=== PATIENT | female | born 2000 | race Caucasian/White ===

== ENCOUNTER 2020-09-26 04:35 | Emergency (ER) | payer MEDICAID ==
[~2020-09-26] VITALS: Ht 175.3 cm; Wt 88.0 kg
[2020-09-26] MEDS ORDERED: SODIUM CHLORIDE 0.9% 1,000 ML IV ONE (07:00)
[2020-09-26] MEDS ORDERED: ONDANSETRON HCL 4MG/2ML INJ IV ONE (07:00)
[2020-09-26 07:42] LABS: CLARITY URINE TURBID (CLEAR); COLOR URINE DARK YELLOW (YELLOW); KETONES URINE TRACE (NEGATIVE); LEUKOCYTE ESTERASE URINE 1+ (NEGATIVE); NITRITE URINE NEGATIVE (NEGATIVE); OCCULT BLOOD URINE NEGATIVE (NEGATIVE); PH URINE 5.5 (4.5-8.0); PROTEIN URINE 1+ (NEGATIVE); SPECIFIC GRAVITY URINE 1.029 (1.005-1.030)
[2020-09-26 08:15] LABS: BASOPHILS % 0.3 % (0.0-2.0); EOSINOPHILS % 0.1 % (0.0-5.0); HEMATOCRIT. 32.6 % (36.0-48.0); HEMOGLOBIN. 10.4 g/dL (12.0-16.0); LYMPHOCYTES % 16.3 % (20.0-50.0); MEAN CORPUSCULAR HEMOGLOBIN 23.5 pg (28.0-32.0); MEAN CORPUSCULAR VOLUME 73.4 fL (81.0-99.0); MEAN PLATELET VOLUME 7.8 fl (7.4-10.4); NEUTROPHILS % 79.3 % (40.0-76.0); PLATELET 324 x1000/uL (130-400); RED BLOOD CELL COUNT 4.44 mill/uL (4.2-5.4); RED CELL DISTRIBUTION WIDTH 16.9 % (11.6-14.6)
[2020-09-26 08:23] LABS: CHLORIDE 108 mEq/L (98-107)
[2020-09-26 08:24] LABS: INR 1.1; PROTHROMBIN TIME 11.4 sec (9.6-11.0)
[2020-09-26 08:37] LABS: HCG SCREEN NEGATIVE
[2020-09-26] MEDS ORDERED: NITR-87 MT (09:45)
[2020-09-26] MEDS ORDERED: IBUPROFEN 600MG TABLET PO ONE (09:45)
[2020-09-26] MEDS ORDERED: ONDA4TAB5 MT (09:45)
[2020-09-26] MEDS ORDERED: NITROFURANTOIN 100MG M/M CAPSULE PO ONE (09:45)
[2020-09-26 11:38] VITALS: BP 109/50
== END 2020-09-26 17:38 | disposition home or self-care (01) ==
LOC: ER 04:35
DX: N39.0 Urinary tract infection, site not specified (principal); D64.9 Anemia, unspecified; F12.10 Cannabis abuse, uncomplicated
CPT/HCPCS: 36415; 76830; 76856; 80053; 81003; 83690; 84703; 85025; 85610; 93005; 96360; 99285; J7030